=== PATIENT | female | born 1955 | race Caucasian/White ===

== ENCOUNTER 2018-03-09 08:02 | Emergency (ER) | payer OTHER ==
--- NOTE | 2018-03-09 08:40 | ED Physician Documentation ---
History of Present Illness - Stated complaint Stated Complaint: RAPID HR - Chief complaint Chief Complaint: Cardiac - Additonal information Additional information: hx from pt 62 f saw PMD last week and atenolol was dced and changed to diuretic since then she has had fats palp (does not know rate but felt fast) also a cough and some SOA for which she has been using her albuterol as prescribed - no change no fever no pain no leg swelling no recent travel surgery inpt stay she called her PMD who told her to come to the ED her prior atenolol dose was 100 mg also she has had cramps while on the diuretic Review of Systems Constitutional: denies: Fever, Chills Cardiac: reports: Palpitations. 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 - Present Medications Home Medications: Ambulatory Orders Medication Instructions Recorded Confirmed Albuterol Sulf [Ventolin Hfa 1 - 2 puffs INH Q4HR PRN 08/02/16 03/09/18 Inhaler] Atorvastatin Calcium [Lipitor] 40 mg PO DAILY 08/02/16 03/09/18 Levothyroxine [Synthroid] 75 mcg PO QDAC 08/02/16 03/09/18 Telmisartan/Hydrochlorothiazid 1 each PO DAILY 08/02/16 03/09/18 [Micardis Hct 80-25 mg Tablet] amLODIPine [Norvasc] 10 mg PO DAILY 08/02/16 03/09/18 Chlorthalidone 50 mg PO DAILY 03/09/18 03/09/18 - Allergies Allergies/Adverse Reactions: Allergies Allergy/AdvReac Type Severity Reaction Status Date / Time No Known Drug Allergies Allergy Verified 08/02/16 01:55 - Social History Does the pt smoke?: No Smoking Status: Never smoker Does the pt drink ETOH?: No Does the pt have substance abuse?: No - Immunizations Immunizations are current?: Yes - POLST Patient has POLST: No PD ED PE NORMAL - Vitals Vital signs reviewed: Yes - Neck Neck: Supple, no meningeal sign - Cardiac Cardiac: RRR - Respiratory Respiratory: No respiratory distress - Abdomen Abdomen: Soft, Non tender - Derm Derm: Normal color - Extremities Extremities: No deformity, No edema, No calf tenderness / cord - Neuro Neuro: Alert and oriented X 3 Results - Vitals Vitals: Vital Signs - 24 hr 03/09/18 03/09/18 08:10 11:10 Temperature 36.8 C 36.8 C Heart Rate 93 79 Respiratory 18 15 Rate Blood Pressure 141/63 H 138/62 H O2 Saturation 100 100 Oxygen O2 Source Room air - EKG (time done) 0815 Rate: Rate (enter#) (90) Rhythm: NSR [place]: Normal Intervals: Normal [place] Ischemia: Normal ST segments - Labs Labs: Laboratory Tests 03/09/18 03/09/18 03/09/18 08:58 08:58 08:58 WBC 10.9 H RBC 4.35 Hgb 13.3 Hct 39.5 MCV 90.7 MCH 30.7 MCHC 33.8 RDW 13.4 Plt Count 205 MPV 9.3 Neut # 5.8 Lymph # 4.0 H [place] # 0.8 Eos # 0.3 Baso # 0.0 Absolute Nucleated RBC 0.01 Nucleated RBC % 0.1 Sodium 133 L Potassium 3.6 Chloride 94 L Carbon Dioxide 26 Anion Gap 13.0 BUN 34 H Creatinine 0.8 Estimated GFR (MDRD) 73 L Glucose 124 H Calcium 9.3 Troponin I < 0.04 Departure - Departure Disposition: 01 Home, Self Care Clinical Impression: Palpitations Condition: Good Follow-Up: BRISA GARDUNO MD [Primary Care Provider] - Comments: Your labs look fine I recommend that you go back to your old medication, the atenolol - and stop the diuretic for now. Please follow up with your PMD within the next week to discuss further medication management
[2018-03-09] MEDS ORDERED: ATENOLOL 25 MG TABLET PO STA (08:54)
[2018-03-09 09:17] LABS: CALCIUM 9.3 mg/dL (8.5-10.3); CREATININE 0.8 mg/dL (0.4-1.0)
--- NOTE | 2018-03-09 09:22 | XRAY Preliminary Report ---
Exam: XR CHEST 2 VIEW X-RAY IMPRESSION: Lower lung volumes with mild crowding. No focal consolidation or pleural effusions. [facility] SITE ID: [id number]
--- NOTE | 2018-03-09 09:22 | XRAY Report ---
EXAM: CHEST RADIOGRAPHY EXAM DATE: 03/09/2018 09:09 AM. CLINICAL HISTORY: Cough palp. COMPARISON: 08/02/2016. TECHNIQUE: 2 views. FINDINGS: Lungs/Pleura: Lower lung volumes. No lobar consolidation or pleural effusions. No pneumothorax. Mediastinum: Cardiac silhouette size appears unremarkable. Atherosclerotic vascular calcification. Other: Degenerative change of the spine. IMPRESSION: Lower lung volumes with mild crowding. No focal consolidation or pleural effusions. [facility] Referring Provider Line: [phone] SITE ID: [id number]
[2018-03-09 09:24] LABS: BASOPHILS % (AUTO) 0.4 %; EOSINOPHILS # (AUTO) 0.3 10^3/uL (0.0-0.7); HGB - HEMOGLOBIN 13.3 g/dL (12.0-16.0); LYMPHOCYTES % (AUTO) 36.4 %; MEAN CORPUSCULAR HEMOGLOBIN 30.7 pg (27.0-31.0); MEAN CORPUSCULAR HGB CONC 33.8 g/dL (32.0-36.0); MEAN CORPUSCULAR VOLUME 90.7 fL (81.0-99.0); MEAN PLATELET VOLUME 9.3 fL (7.9-10.8); MONOCYTES # (AUTO) 0.8 10^3/uL (0.0-1.0); MONOCYTES % (AUTO) 6.9 %; NEUTROPHILS # (AUTO) 5.8 10^3/uL (1.5-6.6); NEUTROPHILS % (AUTO) 53.3 %; PLT - PLATELET COUNT 205 10^3/uL (130-450); RED BLOOD COUNT 4.35 10^6/uL (4.20-5.40); RED CELL DISTRIBUTION WIDTH 13.4 % (12.0-15.0); WHITE BLOOD COUNT 10.9 x10^3/uL (4.8-10.8)
[2018-03-09 11:11] VITALS: BP 138/62
== END 2018-03-09 11:42 | disposition home or self-care (01) ==
LOC: ED 08:02
DX: R00.2 Palpitations (principal); I10 Essential (primary) hypertension; J45.909 Unspecified asthma, uncomplicated; Z79.51 Long term (current) use of inhaled steroids
CPT/HCPCS: 36415; 71046; 80048; 84484; 85025; 93005; 99283; A9270

== ENCOUNTER 2018-12-23 11:16 | Emergency (ER) | payer OTHER ==
[2018-12-23] MEDS ORDERED: IPRATROPIUM/ALBUTEROL 3 ML NEB INH STA (12:03)
[2018-12-23] MEDS ORDERED: DEXAMETHASONE 10 MG/ML VIAL PO STA (12:05)
--- NOTE | 2018-12-23 12:12 | XRAY Report ---
Reason: cough Procedure Date: 12/23/2018 Accession Number: [id number] / [id number] Procedure: XR - Chest 2 View X-Ray CPT Code: 26231 FULL RESULT: EXAM: CHEST RADIOGRAPHY EXAM DATE: 12/23/2018 11:51 AM. CLINICAL HISTORY: Cough. COMPARISON: 03/09/2018 TECHNIQUE: 2 views. FINDINGS: Lungs/Pleura: No focal opacities evident. No pleural effusion. No pneumothorax. Normal volumes. Mediastinum: Heart and mediastinal contours are unremarkable. Small amount of calcification in the aortic arch. Other: Mild degenerative change in the spine. IMPRESSION: Clear lungs. No acute findings. [facility]
--- NOTE | 2018-12-23 12:34 | ED Physician Documentation ---
PD HPI URI - Stated complaint Stated Complaint: - Chief complaint Chief Complaint: Resp - History obtained from History obtained from: Patient - History of Present Illness Timing duration: Weeks (3) Timing details: Still present Associated symptoms: Rhinorrhea, Dry cough, Dyspnea Similar symptoms before: Diagnosis (History of asthma.) - Additional information Additional information: The patient is a 63-year-old female who presents with cough, congestion, and shortness of breath that started about 3 weeks ago and has persisted since that time. Her cough has been interfering with her ability to sleep. For the past 2 days she has also had watery diarrhea. She denies fever or abdominal pain. She denies chest pain. She has been using albuterol inhaler without relief. She reports having history of similar symptoms 2 years ago. Review of Systems Constitutional: denies: Fever Nose: reports: Rhinorrhea / runny nose Throat: denies: Sore throat Cardiac: denies: Chest pain / pressure Respiratory: reports: Dyspnea, Cough GI: reports: Diarrhea. 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 - Present Medications Home Medications: Ambulatory Orders Medication Instructions Recorded Confirmed Albuterol Sulf [Ventolin Hfa 1 - 2 puffs INH Q4HR PRN 08/02/16 03/09/18 Inhaler] Atorvastatin Calcium [Lipitor] 40 mg PO DAILY 08/02/16 03/09/18 Levothyroxine [Synthroid] 75 mcg PO QDAC 08/02/16 03/09/18 Telmisartan/Hydrochlorothiazid 1 each PO DAILY 08/02/16 03/09/18 [Micardis Hct 80-25 mg Tablet] amLODIPine [Norvasc] 10 mg PO DAILY 08/02/16 03/09/18 Chlorthalidone 50 mg PO DAILY 03/09/18 03/09/18 Benzonatate [Tessalon Perle] 100 - 200 mg PO TID PRN #30 capsule 12/23/18 predniSONE [Prednisone] 40 mg PO DAILY #10 tablet 12/23/18 - Allergies Allergies/Adverse Reactions: Allergies Allergy/AdvReac Type Severity Reaction Status Date / Time No Known Drug Allergies Allergy Verified 12/23/18 11:31 - Social History Does the pt smoke?: No Smoking Status: Never smoker Does the pt drink ETOH?: No Does the pt have substance abuse?: No - Immunizations Immunizations are current?: Yes - POLST Patient has POLST: No PD ED PE NORMAL - Vitals Vital signs reviewed: Yes (Initially hypertensive.) - General General: Alert and oriented X 3, Well developed/nourished - HEENT HEENT: Atraumatic, EOMI, Ears normal, Pharynx benign - Neck Neck: Supple, no meningeal sign, No adenopathy, No JVD - Cardiac Cardiac: RRR, No murmur - Respiratory Respiratory: Other (Diffuse expiratory wheezes. No rales or rhonchi.) - Abdomen Abdomen: Soft, Non tender - Back Back: No CVA TTP - Derm Derm: No rash - Extremities Extremities: No edema, No calf tenderness / cord - Neuro Neuro: Alert and oriented X 3, No motor deficit, Normal speech Results - Vitals Vitals: Oxygen O2 Source Room air - Rads (name of study) 2-view CXR Radiology: Prelim report reviewed, EMP read contemporaneously, See rad report (Clear lungs, no acute findings.) PD MEDICAL DECISION MAKING - ED course Complexity details: reviewed results, re-evaluated patient, considered differential, d/w patient ED course: The patient's presentation is most consistent with bronchitis. Her presentation does not suggest pneumonia or congestive heart failure, and her chest x-ray is negative. I doubt pulmonary embolus. Treatment in the emergency department included administration of DuoNeb nebulizer and dexamethasone 10 mg orally. Her air movement improved with the above treatment, and she felt subjectively improved. She is being discharged with prescription for prednisone and for Tessalon. I discussed with her the expected course of illness, symptomatic treatment and outpatient follow-up, as well as potentially worrisome signs or symptoms that should prompt reevaluation in the emergency department. Departure - Departure Disposition: 01 Home, Self Care Clinical Impression: Bronchitis Condition: Stable Instructions: ED Bronchitis Asthmatic Follow-Up: BRISA GARDUNO MD [Physician No Access] - Prescriptions: Benzonatate [Tessalon Perle] 100 - 200 mg PO TID PRN #30 capsule PRN Reason: Cough predniSONE [Prednisone] 40 mg PO DAILY #10 tablet Comments: Continue using your albuterol inhaler as previously prescribed. Take prednisone daily for the next 5 days as prescribed. You can use Tessalon as prescribed if needed for cough. Follow-up with your primary physician within 2 weeks. Call to schedule an appointment. Return to the emergency department if you develop increasing difficulty breathing, or otherwise worsening symptoms. Discharge Date/Time: 12/23/18 12:41
[2018-12-23 12:42] VITALS: BP 124/65
== END 2018-12-23 12:41 | disposition home or self-care (01) ==
LOC: ED 11:16
DX: J40 Bronchitis, not specified as acute or chronic (principal); I10 Essential (primary) hypertension; E78.00 Pure hypercholesterolemia, unspecified; E05.90 Thyrotoxicosis, unspecified without thyrotoxic crisis or storm
CPT/HCPCS: 71046; 94640; 99283

== ENCOUNTER 2023-08-10 08:53 | Outpatient (CLI) | payer MEDICARE, OTHER ==
[2023-08-10 12:25] LABS: BASOPHILS # (AUTO) 0.1 10^3/uL (0.0-0.1); BASOPHILS % (AUTO) 0.6 %; EOSINOPHILS # (AUTO) 0.4 10^3/uL (0.0-0.7); EOSINOPHILS % (AUTO) 3.9 %; HCT - HEMATOCRIT 36.7 % (37.0-47.0); HGB - HEMOGLOBIN 12.2 g/dL (12.0-16.0); LYMPHOCYTES # (AUTO) 3.6 10^3/uL (1.5-3.5); LYMPHOCYTES % (AUTO) 32.4 %; MEAN CORPUSCULAR HEMOGLOBIN 30.3 pg (27.0-31.0); MEAN CORPUSCULAR HGB CONC 33.2 g/dL (32.0-36.0); MEAN CORPUSCULAR VOLUME 91.3 fL (81.0-99.0); MONOCYTES # (AUTO) 0.9 10^3/uL (0.0-1.0); MONOCYTES % (AUTO) 8.4 %; NEUTROPHILS % (AUTO) 54.4 %; PLT - PLATELET COUNT 250 10^3/uL (130-450); RED BLOOD COUNT 4.02 10^6/uL (4.20-5.40); RED CELL DISTRIBUTION WIDTH 12.3 % (12.0-15.0)
[2023-08-10 12:26] LABS: ESTIMATED AVERAGE GLUCOSE 137 mg/dL (70-100); HEMOGLOBIN A1c% 6.4 % (4.27-6.07)
[2023-08-10 12:57] LABS: ALBUMIN 4.5 g/dL (3.2-5.5); ALBUMIN/GLOBULIN RATIO 1.4 (1.0-2.2); ALKALINE PHOSPHATASE 96 IU/L (42-121); ALT ALANINE AMINOTRANSFERASE 12 IU/L (10-60); AST ASPARTATE AMINOTRANSFERASE 16 IU/L (10-42); BILIRUBIN,TOTAL 0.5 mg/dL (0.2-1.0); BUN - BLOOD UREA NITROGEN 24 mg/dL (6-20); CALCIUM 9.8 mg/dL (8.5-10.3); CARBON DIOXIDE - CO2 31 mmol/L (21-32); CHLORIDE 98 mmol/L (101-111); CHOL/HDL RATIO 3.6 (<4.4); CHOLESTEROL 206 mg/dL; CREATININE 0.8 mg/dL (0.6-1.3); GFR - MDRD 72 (>89); GLUCOSE 116 mg/dL (74-104); HDL CHOLESTEROL 58 mg/dL; LDL CHOLESTEROL,CALCULATED 119 mg/dL; LDL/HDL RATIO 2.1 (<4.4); POTASSIUM 3.5 mmol/L (3.5-4.5); SODIUM 137 mmol/L (135-145); TOTAL PROTEIN 7.7 g/dL (6.4-8.9); TRIGLYCERIDES 143 mg/dL (48-352); VLDL CHOLESTEROL 29 mg/dL
[2023-08-10 12:59] LABS: THYROID STIMULATING HORMONE 2.05 uIU/mL (0.34-5.60)
== END 2023-08-10 08:54 | disposition home or self-care (01) ==
LOC: LAB.N 08:53
PROVIDERS: ATTEND Nurse Practitioner
DX: I10 Essential (primary) hypertension (principal); E78.1 Pure hyperglyceridemia; R73.9 Hyperglycemia, unspecified
CPT/HCPCS: 36415; 80053; 80061; 83036; 83721; 84439; 84443; 85025

== ENCOUNTER 2023-10-20 09:35 | Outpatient (CLI) | payer MEDICARE, OTHER ==
--- NOTE | 2023-10-20 16:14 | DEXA Report ---
PROCEDURE: Dexa Spine and/or Hip INDICATIONS: POSTMENOPAUSAL TECHNIQUE: Dual energy x-ray absorptiometry (DXA) was performed on a [employer] System. Regions measur ed are the AP Spine, femoral neck, and if needed forearm. COMPARISON: None FINDINGS: Lumbar Spine: Bone Mineral Density 1.283 g/cm/cm,T score 0.9. Left Femoral Neck: Bone Mineral Density 0.954 g/cm/cm, T score -0.6. Left Hip: Bone Mineral Density 1.115 g/cm/cm,T score 0.9. (T score greater or equal to -1.0: NORMAL) (T score from -1.1 to -2.4: OSTEOPENIA) (T score less than or equal to -2.5 to: OSTEOPOROSIS) Impression: By WHO criteria, this patient has normal bone density. Patients with diagnosis of osteoporosis or osteopenia should have regular bone mineral density assess ment. For those eligible for Medicare, routine testing is allowed once every 2 years. Testing frequ ency can be increased for patients who have rapidly progressing disease or for those who are receivin g medical therapy to restore bone mass. Reviewed by: Nidia Carballo MD on 10/20/2023 4:13 PM PST Approved by: Nidia Carballo MD on 10/20/2023 4:13 PM PST Station ID: [id number]
== END 2023-10-20 09:36 | disposition home or self-care (01) ==
LOC: DI 09:35
PROVIDERS: ATTEND Nurse Practitioner
DX: Z78.0 Asymptomatic menopausal state (principal)